=== PATIENT | female | born 1960 | race Caucasian/White ===

== ENCOUNTER 2017-04-19 06:16 | Day surgery (SDC) | payer BC ==
[2017-04-19] MEDS ORDERED: oxyCODONE HCL 10 MG SUSTAINED ACTING TABLET PO STA (06:36)
[2017-04-19] MEDS ORDERED: CEFAZOLIN 2 GM/D5W 2 GM/50 ML ML IVPB ONE (06:36)
[2017-04-19] MEDS ORDERED: oxyCODONE HCL 10 MG SUSTAINED ACTING TABLET ONE (06:54)
[2017-04-19] MEDS ORDERED: LIDOCAINE 1%/EPI 1:100000 (20 ML MULTI DOSE VIAL) ONE (07:19)
[2017-04-19] MEDS ORDERED: GELATIN, ABSORBABLE 100 EACH SPONGE TP ONE (07:20)
[2017-04-19] MEDS ORDERED: THROMBIN (BOVINE) 5,000 UNIT VIAL TP ONE ×3 (07:36→09:29)
[2017-04-19] MEDS ORDERED: MIDAZOLAM HCL 2 MG/2 ML SINGLE DOSE VIAL ONE (07:58)
--- NOTE | 2017-04-19 08:02 | HP ---
History & Physical Update - History History: No Change - Physical Physical: No Change - Assessment Assessment: No Change - Plan Plan: No Change (Here today for elective repair of her C5-C6 disc herniation with radiculopathy (pain radiating into her left shoulder and numbness/ tinglining sensation down arm extending to her fingers.))
[2017-04-19] MEDS ORDERED: PROPOFOL 20 ML ONE ×6 (08:25→09:32)
[2017-04-19] MEDS ORDERED: LIDOCAINE HCL 2% 100 MG/5 ML DISP.SYRIN ONE (08:44)
[2017-04-19] MEDS ORDERED: LIDOCAINE 1%/EPI 1:100000 (20 ML MULTI DOSE VIAL) IJ ONE ×2 (08:54→09:17)
[2017-04-19] MEDS ORDERED: PHENYLEPHRINE HCL 10 MG/1 ML SINGLE DOSE VIAL ONE (09:09)
[2017-04-19] MEDS ORDERED: DEXAMETHASONE SOD PHOSPHATE 4 MG/1 ML VIAL ONE (09:20)
[2017-04-19] MEDS ORDERED: ONDANSETRON 4 MG/2 ML VIAL ONE (09:20)
[2017-04-19] MEDS ORDERED: ceFAZolin SODIUM 1 GM VIAL ONE (09:21)
[2017-04-19] MEDS ORDERED: HYDROmorphone HCL/PF 1 MG/ML VIAL (FOR PYXIS CHARGING ONLY) ONE (09:23)
--- NOTE | 2017-04-19 11:10 | OP ---
Operative Note - Note: Operative Date: 04/19/17 Pre-Operative Diagnosis: Cervical stenosis with radiculopathy Operation: ACDF C5/6 Post-Operative Diagnosis: Same as Pre-op Surgeon: Praful Pierre Artist Consultant: Domingo Pearson Anesthesiologist/CHARGEBACK ANALYST: Yamile Maya Anesthesia: General Specimens Removed: C5/6 disc Estimated Blood Loss (mls): 25 Drains & Tubes with Location: Fluid Volume Replaced (mls): 1,300 Operative Report Dictated: Yes
[2017-04-19] MEDS ORDERED: ONDANSETRON 4 MG/2 ML VIAL IVPUSH PRN (11:11)
[2017-04-19] MEDS ORDERED: oxyCODONE HCL 5 MG TABLET PO PRN ×2 (11:11)
--- NOTE | 2017-04-19 11:11 | SURG ---
Surgery Primer Boxer Note Primer Boxer: Domingo Pearson PA-C Date of Service: 04/19/17 Diagnosis: Cervical stenosis with radiculopathy Procedure: Anterior cervical discectomy, fusion, instrumentation C5/6, allograft implant, neuromonitoring I was present for the entirety of the operative procedure. For further detail, please refer to operative report. Visit type - Case Type Case Type: Scheduled Admission - New patient This patient is new to me today: Yes Date on this admission: 04/19/17
[2017-04-19] MEDS ORDERED: diazePAM 2 MG TABLET PO PRN (11:13)
[2017-04-19] MEDS ORDERED: LACTATED RINGERS SOLUTION 1,000 ML IV SCH (11:15)
--- NOTE | 2017-04-19 12:39 | OP ---
DATE OF OPERATION: 04/19/2017 PREOPERATIVE DIAGNOSIS: Cervical stenosis C5-C6. POSTOPERATIVE DIAGNOSIS: Cervical stenosis C5-C6. PROCEDURE PERFORMED: 1. Anterior cervical diskectomy and fusion C5-C6. 2. Placement of cage. 3. Placement of instrumentation. SURGEON: Praful Pierre MD BIOMEDICAL PHOTOGRAPHER: ALEXANDRIA Harrison ESTIMATED BLOOD LOSS: 50 mL. IV FLUIDS: Per Anesthesia. ANESTHESIA: General. DISPOSITION: The patient was brought to the PACU in stable condition. INDICATIONS FOR SURGERY: The patient is a 56-year-old female who has been suffering from pain from her neck down her arms. X-rays and MRI were completed, which noted that she has a herniated disk at C5-C6. She had gone through an exhaustive course of treatment for this, which included medications, physical therapy as well as injections. Unfortunately, her pain continued to persist despite all this. At this point, risks, benefits, and alternatives were discussed, and the patient consented to surgery. DESCRIPTION OF PROCEDURE: The patient was brought to the operating room by the Anesthesia staff. After appropriate patient identification was performed, general anesthesia was given. Appropriate anesthetic lines were placed. Neuromonitoring leads were attached. The patient was placed supine on the OR bed with her arms tucked in at the side. All areas and bony prominences were well padded at this time. A needle was taped down to her neck to off the C5-C6 level. An x-ray was taken to confirm this was correct. The needle was removed, and 10 mL of lidocaine with epinephrine was injected into her neck at this time. Her neck was prepped and draped in a sterile manner. At this point, a time-out was completed. An incision was made on the left side of her neck. Dissection was carried down to the fascia. The fascia was opened at this time. The platysma was cut in line with the skin incision. Next, the interval between the sternocleidomastoid as well as strap muscles was developed. Next, the interval between the carotid sheath as well as trachea and esophagus was developed. Peanuts were used to elevate off the prevertebral fascia. A needle was placed into the C5-C6 disk. An x-ray was taken to confirm this was correct. Needle was removed , and the longus colli muscles were elevated off, and retractor blades were placed in. A Compton pin was placed into the body of C5 and C6. A knife was used to incise the disk. Distraction was applied. The microscope was brought in. Using a series of pituitaries, Kerrisons, and curettes, a diskectomy was completed. Endplates were decorticated at this time. A size 7 cage filled with bone graft was placed in. Compton pins were removed. A screw was placed into the body of C5, and a screw was placed into the body of C6. AP and lateral x-rays confirmed the instrumentation to be in good position. Final tightening was performed. A drain was placed. The platysma was closed with 2-0 Vicryl suture. The skin was closed with 3-0 Monocryl suture. Dermabond was applied. Steri-Strips were applied. A sterile dressing was applied. The patient was placed supine on the OR bed, extubated in the OR, and brought to the PACU in stable condition. Kun PEPE/[id number] MTDD
[2017-04-19] MEDS: DEXAMETHASONE SOD PHOSPHATE 4 MG/1 ML VIAL IVPUSH SCH ×2 (15:00→21:36)
[2017-04-19] MEDS: CEFAZOLIN 1 GM/D5W 1 GM/50 ML BAG IVPB SCH (18:51)
[2017-04-20] MEDS: CEFAZOLIN 1 GM/D5W 1 GM/50 ML BAG IVPB SCH (02:00)
[2017-04-20] MEDS: DEXAMETHASONE SOD PHOSPHATE 4 MG/1 ML VIAL IVPUSH SCH ×2 (03:00→09:52)
--- NOTE | 2017-04-20 09:40 | PN ---
Progress Note, Physician Chief Complaint: s/p acdf under general anesthesia History of Present Illness: post op day one - Current Medication List Current Medications: Active Medications Dexamethasone Sodium Phosphate (Decadron Injection -) 4 mg IVPUSH Q6H-IV BEULAH Last Admin: 04/20/17 03:00 Dose: 4 mg Diazepam (Valium -) 2 mg PO Q6H PRN PRN Reason: MUSCLE SPASMS Last Admin: 04/19/17 11:50 Dose: 2 mg Lactated Ringer's (Lactated Ringers Solution) 1,000 mls @ 125 mls/hr IV ASDIR [facility] Non-Formulary Medication (Estradiol/Norethindrone Acet [Mimvey 1-0.5 Mg Tablet] ) 1 each PO DAILY [facility] Ondansetron HCl (Zofran Injection) 4 mg IVPUSH Q6H PRN PRN Reason: NAUSEA AND/OR VOMITING Last Admin: 04/19/17 16:00 Dose: 4 mg Oxycodone HCl (Roxicodone -) 5 mg PO Q4H PRN PRN Reason: PAIN LEVEL 1-5 Oxycodone HCl (Roxicodone -) 10 mg PO Q4H PRN PRN Reason: PAIN LEVEL 6-10 Last Admin: 04/19/17 19:04 Dose: 10 mg Sulfasalazine (Azulfidine En-Tabs -) 500 mg PO DAILY [facility] - Objective Vital Signs: Vital Signs Temperature 97.8 F 04/20/17 05:00 Pulse Rate 88 04/20/17 05:00 Respiratory Rate 18 04/20/17 07:53 Blood Pressure 111/62 04/20/17 05:00 O2 Sat by Pulse Oximetry (%) 95 04/20/17 07:53 Constitutional: Yes: Well Nourished Cardiovascular: Yes: WNL Respiratory: Yes: WNL Gastrointestinal: Yes: WNL Assessment/Plan Pain controlled with oral analgesics, two episodes of nausea overnight with vomiting, no nausea currently, tolerated breakfast, slight headache but only wants tylenol for the pain, slight sore throat possibly from intubation. No other complaints. Dept of anesthesia will sign off care at this time.
[2017-04-20] MEDS ORDERED: PT OWN MED DRAWER 7, Y5N ONE (09:44)
[2017-04-20] MEDS ORDERED: NORETHINDRONE ACET PO SCH (10:00)
[2017-04-20] MEDS ORDERED: ESTRADIOL PO SCH (10:00)
[2017-04-20] MEDS ORDERED: [UNRECOGNIZED DRUG - OTHER] PO SCH (10:00)
--- NOTE | 2017-04-20 10:12 | DS ---
Physical Exam: SUBJECTIVE: Patient seen and examined and states that her arm pain is better. She tolerated liquids last pm, hasn't tried any solid foods. OOB and ambulating , voiding on her own. OBJECTIVE: Vital Signs Temperature 97.8 F 04/20/17 05:00 Pulse Rate 88 04/20/17 05:00 Respiratory Rate 18 04/20/17 07:53 Blood Pressure 111/62 04/20/17 05:00 O2 Sat by Pulse Oximetry (%) 95 04/20/17 07:53 PHYSICAL EXAM GENERAL: The patient is awake, alert, and fully oriented, in no acute distress. NECK: Trachea midline, full range of motion, supple and soft. No stridor. Incision c/d/i with steri-strips. No masses or ecchymosis seen. LUNGS: Breath sounds equal, clear to auscultation bilaterally, no wheezes, no crackles, no accessory muscle use. HEART: Regular rate and rhythm, S1, S2 without murmur, rub or gallop. EXTREMITIES: 2+ pulses, warm, well-perfused, no edema. NEUROLOGICAL: Normal speech, gait not observed. 5/5 dorsi/plantar flexion b/l. Nitroglycerin Separator Operator strength equal b/l upper extremity flexion/extension 5/5 b/l. PSYCH: Normal mood, normal affect. LABS HOSPITAL COURSE: Date of Admission:04/19/17 Date of Discharge: 04/20/17 The patient was admitted to the Med-Surg Unit after an elective repair of their cervcial stenosis. Now, s/p C5-C6 anterior fusion. The day of surgery, the patient ambulated the hallways with assistance. Narcotic and non-narcotic pain management control was achieved with an oral and IV approach. POD #1, the surgical drain was removed fully intact and without incident. An xray was obtained and confirmed hardware placement at (level of ), no fractures or dislocations. Grace-operative IV ABX were administered. DVT prophylaxis was achieved with SCDs and early ambulation. The patient ambulated with Physical Therapy and no services were recommended upon discharge. Narcotic scripts and or muscle relaxants were checked with [employer]OCK INSTALLATION HELPER prior to escibe. The discharge instructions and an oral pain management plan were reviewed with the patient. All questions answered. Above plan discussed with Dr. Pierre and agreed. Minutes to complete discharge: 20 <Metzen,Mojgan - Last Filed: 04/20/17 10:08> Physical Exam: SUBJECTIVE: Patient seen and examined OBJECTIVE: Vital Signs Temperature 98.4 F 04/20/17 11:30 Pulse Rate 89 04/20/17 11:30 Respiratory Rate 18 04/20/17 11:30 Blood Pressure 111/63 04/20/17 11:30 O2 Sat by Pulse Oximetry (%) 97 04/20/17 11:30 PHYSICAL EXAM GENERAL: The patient is awake, alert, and fully oriented, in no acute distress. HEAD: Normal with no signs of trauma. EYES: PERRL, extraocular movements intact, sclera anicteric, conjunctiva clear. ENT: Ears normal, nares patent, oropharynx clear without exudates, moist mucous membranes. NECK: Trachea midline, full range of motion, supple. LUNGS: Breath sounds equal, clear to auscultation bilaterally, no wheezes, no crackles, no accessory muscle use. HEART: Regular rate and rhythm, S1, S2 without murmur, rub or gallop. ABDOMEN: Soft, nontender, nondistended, normoactive bowel sounds, no guarding, no rebound, no hepatosplenomegaly, no masses. EXTREMITIES: 2+ pulses, warm, well-perfused, no edema. NEUROLOGICAL: Cranial nerves II through XII grossly intact. Normal speech, gait not observed. PSYCH: Normal mood, normal affect. SKIN: Warm, dry, normal turgor, no rashes or lesions noted. LABS HOSPITAL COURSE: Date of Admission:04/19/17 Date of Discharge: 04/23/17 The patient was admitted to the Med-Surg Unit after an elective repair of their C5-6 herniated disc. The day of surgery, the patient ambulated the hallways with assistance. Narcotic and non-narcotic pain management control was achieved with an oral and IV approach. POD #1, the surgical drain was removed fully intact and without incident. An xray was obtained and confirmed hardware placement at C5-6, no fractures or dislocations. Grace-operative IV ABX were administered. DVT prophylaxis was achieved with SCDs and early ambulation. The patient ambulated with Physical Therapy and no services were recommended upon discharge. Narcotic scripts and or muscle relaxants were checked with [employer] INSTALLATION HELPER prior to escibe. The discharge instructions and an oral pain management plan were reviewed with the patient. All questions answered. Above plan discussed with Dr. Pierre and agreed. <Praful Pierre - Last Filed: 04/23/17 10:42> Visit type - Case Type Case Type: Scheduled Admission - Emergency Emergency Visit: No - New patient This patient is new to me today: Yes Date on this admission: 04/20/17 <Mojgan Rush - Last Filed: 04/20/17 10:08>
[2017-04-20 12:18] VITALS: BP 111/63; PULSE 89; TEMP 98.4
--- NOTE | 2017-04-25 16:30 | PATH ---
Surgical Pathology Report Patient Name: ANALIA CANTOR [facility]. Rec. #: [id number] /Age/Gender: 1960 (Age: 56) / F Account: [id number] Location: ON LICENSE OF [facility] AMBULATORY Taken: 04/19/2017 Received: 04/19/2017 Reported: 04/25/2017 Physicians: Praful Pierre M.D. Specimen(s) Received DISC C5-C6 Clinical History Cervical stenosis Final Diagnosis DISC C5-C6, DISCECTOMY: CARTILAGE WITH DEGENERATIVE CHANGES. Electronically Signed Maryuri Alejandro M.D. Gross Description Received in formalin labeled "disc C5-C6," is a 2.5 x 2.5 x 0.4 cm aggregate of garzon fragments of fibrocartilaginous tissue. A operations support representative portion is submitted in one cassette. 04/19/201704/19/2017
== END 2017-04-20 11:40 | disposition home or self-care (01) ==
LOC: FASU 06:16 → FM/S 12:33 → FASU 04-20 11:40
PROVIDERS: ATTEND Orthopaedic Surgery Orthopaedic Surgery of the Spine
PROC: 0RG10A0 Fusion of Cervical Vertebral Joint with Interbody Fusion Device, Anterior Approach, Anterior Column, Open Approach (ICD-10-PCS; 2017-04-19)
PROC: 0RG10K0 Fusion of Cervical Vertebral Joint with Nonautologous Tissue Substitute, Anterior Approach, Anterior Column, Open Approach (ICD-10-PCS; 2017-04-19)
PROC: 0RB30ZZ Excision of Cervical Vertebral Disc, Open Approach (ICD-10-PCS; principal; 2017-04-19 09:29)
DX: M48.02 Spinal stenosis, cervical region (principal)
CPT/HCPCS: 72050-TC-FY; 76001-TC-FY; 88304-TC; 94760; 97116-GP; 97161-GP

== ENCOUNTER 2018-12-23 02:46 | Emergency (ER) | payer BC ==
[2018-12-23 03:28] VITALS: BMI 30.9
[2018-12-23] MEDS ORDERED: SODIUM CHLORIDE 1,000 ML IV STA ×2 (03:30→04:56)
[2018-12-23] MEDS ORDERED: ACETAMINOPHEN 1000 MG/100 ML VIAL (NON FORMULARY) IVPB ONE (03:30)
--- NOTE | 2018-12-23 03:31 | PDOC ---
History of Present Illness - General Stated Complaint: ABD AND CHES PAIN, VOMITING Time Seen by Provider: 12/23/18 03:23 History Source: Patient Exam Limitations: No Limitations - History of Present Illness Initial Comments: Pt is a 58 yo F, with PMH of UC (not currently on medications due to good control), who is presenting with complaints of nausea, vomiting, upper abdominal pain, and chest discomfort which woke her from sleep. PT states she last ate meatballs around 4 pm. Pt states she was in her usual state of health until having these symptoms. Pt had 4-5 episodes of NBNB vomiting. Pt states the pain started in her upper abdomen after the vomiting, which then spread up with "pressure" to the middle of her chest. PT denies any recent NSAID or alcohol use, and has never experienced this pain in the past. Pt denies any recent fevers/chills, headache, vision changes, syncope, palpitations, SOB, urinary symptoms, diarrhea/constipation, or leg swelling. Allergies: NKDA PCP: Dr. Shailesh Collins GI: Dr. Moss LMP: 6 years ago Social: Pt denies any cigarette, alcohol, or drug use. Pt denies any recent travel or sick contacts. Surgical: no relevant history. Family: no relevant history. 12/23/18 05:15 12/23/18 06:27 Past History - Travel Traveled outside of the country in the last 30 days: No Close contact w/someone who was outside of country & ill: No - Past Medical History Allergies/Adverse Reactions: Allergies Allergy/AdvReac Type Severity Reaction Status Date / Time No Known Allergies Allergy Verified 04/17/17 12:47 Home Medications: Ambulatory Orders Ondansetron [Zofran Odt -] 4 mg SL TID PRN #10 od.tablet 12/23/18 Anemia: No Asthma: No Cancer: No Cardiac Disorders: No CVA: No COPD: No CHF: No Dementia: No Diabetes: No GI Disorders: Yes (ulcerative colitis) Disorders: No HTN: No Hypercholesterolemia: No Liver Disease: No Seizures: No Thyroid Disease: No - Surgical History Abdominal Surgery: No Appendectomy: No Cardiac Surgery: No Cholecystectomy: No Lung Surgery: No Neurologic Surgery: No Orthopedic Surgery: Yes (R elbow sx) - Psycho Social/Smoking Cessation Hx Smoking History: Never smoked Have you smoked in the past 12 months: Yes If you are a former smoker, when did you quit?: 2004 Information on smoking cessation initiated: No Hx Alcohol Use: No Drug/Substance Use Hx: No Substance Use Type: None Abd/GI Specific PMHX - Complaint Specific PMHX Colitis: Yes (UC) Diverticulitis: No Gall Bladder Disease: No GERD: No Hepatitis: No Irritable Bowel Synd (IBS): No Pancreatitis: No GI Ulcer Disease: No Review of Systems - Review of Systems Able to Perform ROS?: Yes Is the patient limited Kuwaiti proficient: No Constitutional: Yes: Weight Stable. No: Chills, Diaphoresis, Fever, Loss of Appetite, Malaise, Weakness HEENTM: No: Recent change in vision, Nose Congestion, Throat Pain, Throat Swelling, Difficulty Swallowing Respiratory: No: Cough, Orthopnea, Shortness of Breath Cardiac (ROS): Yes: See HPI, Chest Pain. No: Edema, Irregular Heart Rate, Lightheadedness, Palpitations, Syncope, Chest Tightness ABD/GI: Yes: See HPI, Nausea, Vomiting, Indigestion. No: Abdominal Distended, Constipated, Diarrhea, Poor Appetite, Poor Fluid Intake, Abdominal cramping : No: Burning, Dysuria, Frequency, Flank Pain, Hematuria, Pain, Urgency Musculoskeletal: No: Back Pain, Joint Pain, Muscle Pain, Muscle Weakness Integumentary: No: Rash Neurological: No: Headache, Numbness, Weakness, Dizziness Psychiatric: No: Sleep Pattern Change, Change in Appetite Endocrine: No: Increased Urine, Change in Weight Hematologic/Lymphatic: No: Anemia, Blood Clots, Easy Bleeding, Easy Bruising All Other Systems: Reviewed and Negative *Physical Exam - Vital Signs Last Vital Signs Temp Pulse Resp BP Pulse Ox 100.7 F H 110 H 17 104/51 L 99 12/23/18 03:13 12/23/18 03:13 12/23/18 03:13 12/23/18 03:13 12/23/18 03:13 - Physical Exam Comments: Tachycardic, low grade fever. Pt actively vomiting in ED, obese body habitus. Pt alert and oriented x3. consumer safety inspector generally intact, muscular strength and sensation intact. No midline spinal tenderness, step-offs, or crepitus. Head normocephalic, atraumatic. Eyes PERRLA, EOMI. Oropharynx without erythema or exudates, no LAD b/l. No nasal congestion. Hearing intact. Clear heart sounds, S1/S2, no JVD, b/l pedal edema, or heart murmur. Clear lung sounds, no respiratory distress, wheezes, crackles, or accessory muscle use. Epigastric TTP, with no rebound, no guarding. No CVA TTP. Abdomen soft, non- distended, and with normoactive bowel sounds. Skin without jaundice or rash. 12/23/18 06:29 12/23/18 06:31 Heart Score/ECG Review - History History: Slightly suspicious - Electrocardiogram EKG: Normal - Age Age: 45-65 - Risk Factors Based on the list above the patient has:: No risk factors known - Troponin Troponin: </= normal limit - Score Heart Score - Total: 1 ED Treatment Course - LABORATORY CBC & Chemistry Diagram: 12/23/18 03:55 12/23/18 03:55 - RADIOLOGY Radiology Studies Ordered: Category Date Time Status CHEST X-RAY PORTABLE* [RAD] Stat Radiology 12/23/18 03:29 Ordered Medical Decision Making - Medical Decision Making Pt was seen at bedside, also will be seen by attending Dr. Barrera. Pt presenting with epigastric pain and multiple episodes of NBNB vomiting which woke her from sleep. BMs have been normal, no blood in stool or vomitus. Pt febrile tachycardic. Will evaluate with sepsis w/u, ECG, chest x-ray, to look for infection (UTI), pancreatitis, cholecystitis, perforation/free air, colitis flare, ACS. Provided 2 L IV NS, 20 mg IV pepcid, 1 g IV ofirmev for improvement of nausea. Will continue to reassess pt and monitor for symptomatic improvement. ECG: NSR, intervals WNL. Mild T wave flattening in inferior leads, with no reciprocal/significant ST segment changes. No significant changes from prior ECG. 12/23/18 06:34 CBC: WBC elevated at 14 -- may be reactive vs infectious process; no left shift CMP: BUN 24 and lactic acid 2.8 -- providing IVF; pt does not have risk factors for ischemic colitis; will trend lactic acid after fluids. Lipase 108 Trop <.02 with no significant ECG abnormalities. PT still complaining of nausea -- provided 25 mg IV benadryl and 10 mg IV reglan. Pt will stay for second troponin and trend lactic acid. Pt sleeping and able to lie flat comfortably. Signed out to resident Dr. Moise for further management and observation. 12/23/18 15:45 Discharge - Discharge Information Problems reviewed: Yes Clinical Impression/Diagnosis: Abdominal pain Qualifiers: Abdominal location: epigastric Qualified Code(s): R10.13 - Epigastric pain Condition: Stable - Additional Discharge Information Prescriptions: Ondansetron [Zofran Odt -] 4 mg SL TID PRN #10 od.tablet PRN Reason: nausea - Follow up/Referral Referrals: Shailesh Collins MD [Primary Care Provider] - - Patient Discharge Instructions Patient Printed Discharge Instructions: DI for Abdominal Pain-Adult Additional Instructions: You came into the ED for abdominal pain. We gave you medicine and fluids which helped you feel better. Lab work did not indicate acute pathology. Make sure you drink plenty of water. You can take over the counter motrin or tylenol for pain. Follow the instructions on the medication bottle. Follow-up with a primary care provider within 72 hours to discuss this ED visit and to further evaluate your symptoms. Your workup is not complete until you do so. Call and make an appointment. Immediate medical attention is required if you develop: worsening pain, high fevers, persistent nausea, vomiting, or any new or concerning symptoms. If you think you are having an emergency, call for emergency medical services or present to the emergency department right away. - Post Discharge Activity Work/Back to School Note: Back to Work
--- NOTE | 2018-12-23 03:36 | PDOC ---
Attending Attestation - Resident Resident Name: Loida Nunes - ED Attending Attestation I have performed the following: I have examined & evaluated the patient, The case was reviewed & discussed with the resident, I agree w/resident's findings & plan - HPI HPI: 12/23/18 04:56 Vomiting began tonight 12/24/18 22:21 Pt is a 58 yo F, with PMH of UC (not currently on medications due to good control), who is presenting with complaints of nausea, vomiting, upper abdominal pain, and chest discomfort which woke her from sleep. PT states she last ate meatballs around 4 pm. Pt states she was in her usual state of health until having these symptoms. Pt had 4-5 episodes of NBNB vomiting. Pt states the pain started in her upper abdomen after the vomiting, which then spread up with "pressure" to the middle of her chest. PT denies any recent NSAID or alcohol use, and has never experienced this pain in the past. Pt denies any recent fevers/chills, headache, vision changes, syncope, palpitations, SOB, urinary symptoms, diarrhea/constipation, or leg swelling. - Physicial Exam PE: 12/24/18 22:21 Agree with resident exam. Mostly epigastric pain. - Medical Decision Making 12/24/18 22:22 Pt has a fever and she will be hydrated and had labs checked. 2nd cardiac enzyme will be sent later; she was signed out to the day docs.
[2018-12-23] MEDS ORDERED: FAMOTIDINE 20 MG/50 ML IVPB 20 MG/50 ML MG IVPB ONE ×2 (03:45→04:11)
[2018-12-23] MEDS ORDERED: ONDANSETRON 4 MG/2 ML VIAL IVPUSH ONE (03:45)
[2018-12-23] MEDS ORDERED: ACETAMINOPHEN INJECTION 100 ML IVPB ONE (04:10)
[2018-12-23] MEDS ORDERED: ONDANSETRON 4 MG/2 ML VIAL ONE (04:11)
[2018-12-23 04:16] LABS: BASO % 0.2 % (0-2.0); EOS % 0.5 % (0-4.5); HEMATOCRIT 44.7 % (32.4-45.2); HEMOGLOBIN 14.6 GM/dL (10.7-15.3); LYMPH % 7.4 % (8-40); MCH 30.5 pg (25.7-33.7); MCHC 32.5 g/dl (32.0-36.0); MEAN CELL VOLUME 93.6 fl (80-96); MEAN PLT VOLUME 9.9 fl (7.5-11.1); MONO % 6.3 % (3.8-10.2); NEUT % 85.6 % (42.8-82.8); PLATELET COUNT 252 K/MM3 (134-434); RBC 4.78 M/mm3 (3.60-5.2)
[2018-12-23 04:57] LABS: ALBUMIN 3.9 g/dl (3.4-5.0); ALK PHOS 103 U/L (45-117); ANION GAP 13 MMOL/L (8-16); BILIRUBIN,TOTAL 0.5 mg/dL (0.2-1); BLOOD UREA NITROGEN 23.7 mg/dL (7-18); CALCIUM 9.5 mg/dL (8.5-10.1); CHLORIDE 107 mmol/L (98-107); CO2 23 mmol/L (21-32); CREATININE 0.9 mg/dL (0.55-1.3); GLUCOSE,RANDOM 130 mg/dL (74-106); LIPASE 108 U/L (73-393); POTASSIUM 4.9 mmol/L (3.5-5.1); SGOT/AST 27 U/L (15-37); SGPT/ALT 27 U/L (13-61); SODIUM 143 mmol/L (136-145); TOT PROT 7.5 g/dl (6.4-8.2)
[2018-12-23] MEDS ORDERED: METOCLOPRAMIDE HCL INJECTION 10 MG/2 ML VIAL IVPUSH ONE (06:23)
[2018-12-23] MEDS ORDERED: METOCLOPRAMIDE HCL INJECTION 10 MG/2 ML VIAL ONE (06:53)
--- NOTE | 2018-12-23 07:21 | PDOC ---
*Physical Exam - Vital Signs Last Vital Signs Temp Pulse Resp BP Pulse Ox 100.7 F H 92 H 20 108/46 L 95 12/23/18 03:13 12/23/18 04:51 12/23/18 04:51 12/23/18 04:51 12/23/18 04:51 ED Treatment Course - LABORATORY CBC & Chemistry Diagram: 12/23/18 03:55 12/23/18 03:55 - ADDITIONAL ORDERS Additional order review: Laboratory Results 12/23/18 12/23/18 03:55 03:55 Sodium 143 Potassium 4.9 Chloride 107 Carbon Dioxide 23 Anion Gap 13 BUN 23.7 H Creatinine 0.9 Est GFR (CKD-EPI)AfAm 82.84 Est GFR (CKD-EPI)NonAf 71.48 Random Glucose 130 H Lactic Acid 2.8 H* Calcium 9.5 Total Bilirubin 0.5 AST 27 ALT 27 Alkaline Phosphatase 103 Troponin I < 0.02 Total Protein 7.5 Albumin 3.9 Lipase 108 12/23/18 03:55 RBC 4.78 MCV 93.6 MCHC 32.5 RDW 14.0 MPV 9.9 D Neutrophils % 85.6 H D Lymphocytes % 7.4 L D Monocytes % 6.3 Eosinophils % 0.5 D Basophils % 0.2 - Medications Given in the ED: ED Medications Discontinued Medications Generic Name Dose Route Start Last Admin Trade Name Rosie PRN Reason Stop Dose Admin Acetaminophen 1,000 mg 12/23/18 03:30 12/23/18 04:00 Ofirmev Injection - IVPB 12/23/18 03:31 1,000 mg ONCE ONE Administration Diphenhydramine HCl 25 mg 12/23/18 06:23 12/23/18 07:00 Benadryl Injection - IVPUSH 12/23/18 06:24 25 mg ONCE ONE Administration Sodium Chloride 1,000 mls @ 1,000 mls/hr 12/23/18 03:30 12/23/18 03:45 Normal Saline - IV 12/23/18 04:29 1,000 mls/hr ASDIR STA Administration Famotidine/Sodium Chloride 20 mg in 50 mls @ 100 mls/hr 12/23/18 03:45 04:00 Pepcid 20 Mg Premixed Ivpb - IVPB 12/23/18 04:14 100 mls/hr ONCE ONE Administration Sodium Chloride 1,000 mls @ 1,000 mls/hr 12/23/18 04:56 12/23/18 06:51 Normal Saline - IV 12/23/18 05:55 1,000 mls/hr ASDIR STA Administration Metoclopramide HCl 10 mg 12/23/18 06:23 12/23/18 07:00 Reglan Injection - IVPUSH 12/23/18 06:24 10 mg ONCE ONE Administration Ondansetron HCl 4 mg 12/23/18 03:45 12/23/18 04:00 Zofran Injection IVPUSH 12/23/18 03:46 4 mg ONCE ONE Administration Medical Decision Making - Medical Decision Making Patient signed out by Dr. Nunes 58 yo F, with PMH of UC (not currently on medications due to good control), who is presenting with complaints of nausea, vomiting, upper abdominal pain, and chest discomfort Pending repeat lactate and tpn Patient feeling better after zofran, reglan, and fluids 12/23/18 07:21 Second tpn negative Second lactate decreased UA negative for infection 12/23/18 09:26 Zofran sent to pharmacy Discharged with return precautions Discharge - Discharge Information Problems reviewed: Yes Clinical Impression/Diagnosis: Abdominal pain Qualifiers: Abdominal location: epigastric Qualified Code(s): R10.13 - Epigastric pain Condition: Stable Disposition: HOME - Additional Discharge Information Prescriptions: Ondansetron [Zofran Odt -] 4 mg SL TID PRN #10 od.tablet PRN Reason: nausea - Follow up/Referral Referrals: Shailesh Collins MD [Primary Care Provider] - - Patient Discharge Instructions Patient Printed Discharge Instructions: DI for Abdominal Pain-Adult Additional Instructions: You came into the ED for abdominal pain. We gave you medicine and fluids which helped you feel better. Lab work did not indicate acute pathology. Make sure you drink plenty of water. You can take over the counter motrin or tylenol for pain. Follow the instructions on the medication bottle. Follow-up with a primary care provider within 72 hours to discuss this ED visit and to further evaluate your symptoms. Your workup is not complete until you do so. Call and make an appointment. Immediate medical attention is required if you develop: worsening pain, high fevers, persistent nausea, vomiting, or any new or concerning symptoms. If you think you are having an emergency, call for emergency medical services or present to the emergency department right away. - Post Discharge Activity Work/Back to School Note: Back to Work
[2018-12-23 07:51] VITALS: PULSE 100
[2018-12-23 09:18] LABS: PH,URINE 6.5 (5.0-8.0); URINE APPEARANCE Clear; URINE BILIRUBIN Negative (NEGATIVE); URINE COLOR Yellow; URINE GLUCOSE (UA) Negative (NEGATIVE); URINE KETONE Negative (NEGATIVE); URINE LEUK ESTERASE Negative (NEGATIVE); URINE NITRITE Negative (NEGATIVE); URINE PROTEIN Negative (NEGATIVE); URINE UROBILINOGEN 0.2 mg/dL (0.2-1.0)
[2018-12-23 09:59] VITALS: BP 103/56; TEMP 99.7
--- NOTE | 2018-12-23 10:15 | EKG ---
Test Reason : Blood Pressure : / mmHG Vent. Rate : 107 BPM Atrial Rate : 107 BPM P-R Int : 136 ms QRS Dur : 070 ms QT Int : 314 ms P-R-T Axes : 053 002 014 degrees QTc Int : 419 ms SINUS TACHYCARDIA NONSPECIFIC ST ABNORMALITY ABNORMAL ECG WHEN COMPARED WITH ECG OF 22-MAR-2013 09:29, VENT. RATE HAS INCREASED BY 44 BPM Confirmed by VIRGIL SESAY MD ([id number]) on 12/23/2018 10:15:06 AM Referred By: Confirmed By:VIRGIL SESAY MD
== END 2018-12-23 09:59 | disposition home or self-care (01) ==
LOC: JER 02:46
PROC: 3E0337Z Introduction of Electrolytic and Water Balance Substance into Peripheral Vein, Percutaneous Approach (ICD-10-PCS; principal; 2018-12-23)
PROC: 3E033GC Introduction of Other Therapeutic Substance into Peripheral Vein, Percutaneous Approach (ICD-10-PCS; 2018-12-23)
PROC: 3E033NZ Introduction of Analgesics, Hypnotics, Sedatives into Peripheral Vein, Percutaneous Approach (ICD-10-PCS; 2018-12-23)
PROC: 3E033GC Introduction of Other Therapeutic Substance into Peripheral Vein, Percutaneous Approach (ICD-10-PCS; 2018-12-23)
PROC: 3E033GC Introduction of Other Therapeutic Substance into Peripheral Vein, Percutaneous Approach (ICD-10-PCS; 2018-12-23)
PROC: 3E033GC Introduction of Other Therapeutic Substance into Peripheral Vein, Percutaneous Approach (ICD-10-PCS; 2018-12-23)
DX: R10.13 Epigastric pain (principal); Z87.19 Personal history of other diseases of the digestive system
CPT/HCPCS: 36415; 71045-TC-FY; 80053; 81003; 83605; 83690; 84484; 85025; 87040; 87070; 87086; 87880; 93005; 93010; 99285-25; J0131; J7030

== ENCOUNTER 2020-09-24 07:42 | Day surgery (SDC) | payer BC ==
[2020-09-22 13:55] VITALS: BMI 32.9
[2020-09-24] MEDS ORDERED: KETOROLAC TROMETHAMINE 30 MG/1 ML VIAL ONE (08:49)
[2020-09-24] MEDS ORDERED: LIDOCAINE HCL/PF 2% SDV 5ML VIAL ONE (08:49)
[2020-09-24] MEDS ORDERED: DEXAMETHASONE SOD PHOSPHATE 4 MG/1 ML VIAL ONE (08:49)
[2020-09-24] MEDS ORDERED: ONDANSETRON 4 MG/2 ML VIAL ONE (08:49)
[2020-09-24] MEDS ORDERED: ceFAZolin SODIUM 1 GM VIAL ONE (08:49)
[2020-09-24] MEDS ORDERED: PROPOFOL 20 ML ONE ×2 (08:50)
[2020-09-24] MEDS ORDERED: MIDAZOLAM HCL 2 MG/2 ML SINGLE DOSE VIAL ONE (10:17)
[2020-09-24] MEDS ORDERED: ONDANSETRON 4 MG/2 ML VIAL IVPUSH PRN (10:53)
[2020-09-24] MEDS ORDERED: oxyCODONE HCL 5 MG TABLET PO PRN ×2 (10:53)
[2020-09-24] MEDS ORDERED: LACTATED RINGERS SOLUTION 1,000 ML IV SCH (11:00)
[2020-09-24] MEDS ORDERED: BUPIVACAINE HCL/PF 2.5 MG/ML - 30 ML VIAL IJ ONE (11:04)
[2020-09-24] MEDS ORDERED: ACETAMINOPHEN 1000 MG/100 ML VIAL (NON FORMULARY) IVPB ONE (12:21)
[2020-09-24 13:42] VITALS: TEMP 98
[2020-09-24 14:44] VITALS: BP 116/72; PULSE 66
== END 2020-09-24 14:30 | disposition home or self-care (01) ==
LOC: FASU 07:42
PROVIDERS: ATTEND Orthopaedic Surgery
PROC: 0SBD4ZZ Excision of Left Knee Joint, Percutaneous Endoscopic Approach (ICD-10-PCS; 2020-09-24)
PROC: 0SBD4ZZ Excision of Left Knee Joint, Percutaneous Endoscopic Approach (ICD-10-PCS; principal; 2020-09-24 11:51)
DX: S83.282A Other tear of lateral meniscus, current injury, left knee, initial encounter (principal); S83.8X2A Sprain of other specified parts of left knee, initial encounter; M65.862 Other synovitis and tenosynovitis, left lower leg; X58.XXXA Exposure to other specified factors, initial encounter; Y93.9 Activity, unspecified; Y92.9 Unspecified place or not applicable
CPT/HCPCS: 88304-TC; 94760; J0131

== ENCOUNTER 2022-08-15 22:15 | Emergency (ER) | payer BC, OTHER ==
[2022-08-15 22:39] VITALS: BP 111/73; PULSE 77; RESP 18; TEMP 97.8; BMI 33.5
[2022-08-15] MEDS ORDERED: FAMOTIDINE 20 MG/50 ML IVPB 20 MG/50 ML MG IVPB ONE (23:55)
[2022-08-15] MEDS ORDERED: KETOROLAC TROMETHAMINE 30 MG/1 ML VIAL IVPUSH ONE (23:55)
[2022-08-15] MEDS ORDERED: LIDOCAINE 5% TOPICAL PATCH TP ONE (23:55)
[2022-08-16] MEDS ORDERED: KETOROLAC TROMETHAMINE 30 MG/1 ML VIAL ONE (00:18)
[2022-08-16] MEDS ORDERED: FAMOTIDINE 20 MG/50 ML IVPB 20 MG/50 ML MG IVPB ONE (00:18)
[2022-08-16] MEDS ORDERED: LIDOCAINE 5% TOPICAL PATCH ONE (00:18)
[2022-08-16 00:35] LABS: EOS % 2.7 % (0-4.5); HEMATOCRIT 38.9 % (32.4-45.2); HEMOGLOBIN 12.7 GM/dL (10.7-15.3); LYMPH % 29.8 % (8-40); MCHC 32.6 g/dl (32.0-36.0); MEAN CELL VOLUME 89.1 fl (80-96); MEAN PLT VOLUME 9.3 fl (7.5-11.1); MONO % 6.7 % (3.8-10.2); NEUT % 59.8 % (42.8-82.8); PLATELET COUNT 321 10^3/uL (134-434); RBC 4.36 M/mm3 (3.60-5.2); RDW 14.7 % (11.6-15.6); WHITE BLOOD COUNT 8.2 K/mm3 (4.0-10.0)
[2022-08-16 00:52] LABS: ALBUMIN 3.9 g/dl (3.4-5.0); BLOOD UREA NITROGEN 13.8 mg/dL (7-18); CALCIUM 9.8 mg/dL (8.5-10.1)
[2022-08-16 00:55] LABS: CREATININE 0.8 mg/dL (0.55-1.3)
[2022-08-16 00:57] LABS: BILIRUBIN,TOTAL 0.5 mg/dL (0.2-1); TOT PROT 7.7 g/dl (6.4-8.2)
[2022-08-16 01:00] LABS: N-TERMINAL BNP 30.9 pg/ml (5-125)
[2022-08-16] MEDS ORDERED: LIDOCAINE PATCH REMOVAL MC ONE (12:00)
== END 2022-08-16 02:39 | disposition home or self-care (01) ==
LOC: JER 22:15
PROC: 3E033GC Introduction of Other Therapeutic Substance into Peripheral Vein, Percutaneous Approach (ICD-10-PCS; principal; 2022-08-15)
PROC: 3E033NZ Introduction of Analgesics, Hypnotics, Sedatives into Peripheral Vein, Percutaneous Approach (ICD-10-PCS; 2022-08-15)
DX: M99.08 Segmental and somatic dysfunction of rib cage (principal); S29.012A Strain of muscle and tendon of back wall of thorax, initial encounter; R07.9 Chest pain, unspecified; M54.9 Dorsalgia, unspecified
CPT/HCPCS: 36415; 71046-TC-FY; 80053; 83690; 83880; 84484; 85025; 85379; 93005; 93010; 99285-25